=== PATIENT | male | born 1995 | race Caucasian/White ===

== ENCOUNTER 2018-05-22 13:30 | Emergency (ER) | payer OTHER ==
[~2018-05-22] VITALS: Wt 78.6 kg
[2018-05-22 13:43] VITALS: BP 133/71; PULSE 75; RESP 22
[2018-05-22] MEDS ORDERED: HYDROCODONE/APAP (5/325) TAB PO ONE (15:30)
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
[2018-05-22] MEDS ORDERED: ONDA8TAB14 PO (16:07)
[2018-05-22] MEDS ORDERED: HYDR-4011 PO (16:07)
== END 2018-05-22 16:34 | disposition home or self-care (01) ==
LOC: FTE 13:30
DX: G44.319 Acute post-traumatic headache, not intractable (principal); S00.412A Abrasion of left ear, initial encounter; V49.59XA Passenger injured in collision with other motor vehicles in traffic accident, initial encounter
CPT/HCPCS: 70450